=== PATIENT | female | born 2000 | race Caucasian/White ===

== ENCOUNTER 2022-02-02 14:49 | Outpatient (CLI) | payer BC, OTHER, SELFPAY ==
[2022-02-02 17:00] LABS: HIV 1/2/P24 Combo Screen* Negative (Negative)
[2022-02-02 20:51] LABS: Hepatitis B Surface Antigen* Negative (Negative)
[2022-02-02 21:09] LABS: Hepatitis C Virus Antibody* Negative (Negative)
[2022-02-03 02:08] LABS: Chlamydia DNA Amplified* NOT DETECTED (No Detected); GC DNA Amplified* NOT DETECTED (No Detected)
[2022-02-04 12:29] LABS: Varicella-Zoster Virus Ab, IgG 663.8 IV
[2022-02-04 12:37] LABS: Rubella Antibody IgG 23.6 IU/mL
[2022-02-04 17:49] LABS: Rapid Plasma Reagin (RPR) Non Reactive (Non Reactive)
== END 2022-02-02 14:50 | disposition home or self-care (01) ==
PROVIDERS: PCP Family Medicine; Visit Provider Advanced Practice Midwife
DX: Z34.91 Encounter for supervision of normal pregnancy, unspecified, first trimester (principal); Z3A.08 8 weeks gestation of pregnancy
CPT/HCPCS: 86592; 86703; 86762; 86787; 86803; 86850; 86900; 86901; 87086; 87340; 87491; 87591

== ENCOUNTER 2022-04-27 13:54 | Outpatient (CLI) | payer OTHER, BC, SELFPAY ==
--- OUTSIDE RECORDS SUMMARY | 2022-04-27 13:57 | XMS_ITS | Encounter Summary ---
:2000 Author Organization [facility] Address [address] [place] [address] Care Team Providers Name Role Phone No Contact, Pcp Primary Care Provider Unavailable Encounter Details Date Type Department Care Team Description 11/05/2020 Orders Only [facility] Sa chauncey Bishop M.D. [address] [place], [place] [phone] (Wo rk) Social History Tobacco Use Types Packs/Day Years Used Date Smoking Tobacco: Never Assessed Sex Assigned at Date Recorded Not on file documented as of this encounter Plan of Treatment Not on filedocumented as of this encounter Visit Diagnoses Not on filedocumented in this encounter Care Teams Insurance Marketing Specialist Relationship Specialty Start Date End Date No Contact, Pcp PCP - General Family Medicine 05/24/20 documented as of this encounter
--- OUTSIDE RECORDS SUMMARY | 2022-04-27 13:57 | XMS_ITS | Clinical Summary ---
:1999 Author Organization [facility] [place] [address] Care Team Providers Name Role Phone Liyah Alvarez MD Primary Care Provider Allergies Active Allergy Reactions Severity Noted Date Comments Penicillins *Unknown 08/14/2015 Family history penicillin allergy Medications Medication Sig Dispensed Refills Start Date End Date Status fluticasone (50 mcg per SHAKE LIQUID AND 48 g 2 Active actuation) nasal USE 2 SPRAYS IN solution EACH NOSTRIL (FLONASE)Indications: EVERY DAY Seasonal allergies, Acute non-recurrent frontal sinusitis polyethylene glycoL Mix 1 scoop (17 595 g 2 09/09/2021 Active (MIRALAX) 17 gram/dose g) in liquid then powderIndications: take by mouth Chronic constipation once daily. 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 Nystagmus, unspecified 02/09/2005 Encounters Date Type Specialty Care Team Description 03/20/2022 Refill Liyah Alvarez MD Refill Request (Teofilo (28)) 02/02/2022 Orders Only Scanner <No scans attac hed> from Last 3 Months Immunizations Name Administration Dates Next Due DTP-HIB 1999 DTaP 03/13/2004, 1999, 1999, 1999 DTaP-HIB (TriHIBIT) 04/26/2000, 1999, 1999 HIB PRP-T (ActHIB,Hiberix) 1999, 1999, 9 Hepatitis A (Peds) 02/21/2015 Hepatitis B (Adult) 04/26/2000, 1999, 1999 Hepatitis B (Peds) 04/26/2000, 1999, 1999 Human Papilloma Virus Vaccine 07/13/2012, 02/29/2012, 2011 Inactivated Polio Vaccine 03/13/2004, 1999, 1999 , 1999 Influenza, IIV3 (Age >=3 years) 05/27/2007 Influenza, IIV4 05/31/2019, 05/28/2017 Influenza, IIV4 (=>6mos) MDV 05/31/2019 MMR 03/13/2004, 04/26/2000 Meningococcal Vaccine (Menactra) 09/03/2010 Meningococcal Vaccine (Menveo) 09/03/2010 Pneumococcal conj 7-Valent (Prevnar 7) 04/26/2000, 0 Tdap 09/03/2010 Tuberculin (PPD) 03/06/2015, 02/21/2015 Varicella Vaccine 09/03/2010, 08/05/2000, 07/01/2000 Family History Medical History Relation Name Comments Alcohol/Drug Mother Lactose intolerance Mother Genetic Other glaucoma-Uncle~l azy eye-cousin Good Health Sister Relation Name Status Comments Mother Alive Other Sister Alive Social History Tobacco Use Types Packs/Day Years Used Date Former Smoker Cigarettes Smokeless Tobacco: Never Used Tobacco Cessation: Counseling Given: Yes Alcohol Use Standard Drinks/Week Comments Yes 0 (1 standard drink = 0.6 oz pure alcoho l) Alcohol Habits Answer Date Recorded How often do you have a drink containing alcohol? Never 03/16/2019 How many drinks containing alcohol do you have on a typical Not asked day when you are drinking? How often do you have six or more drinks on one occasion? Ne phuong 03/16/2019 Comment: Not asked Sex Assigned at Date Recorded Not on file Obstetrics History Para Term AB IAB SAB Ectopic Multiple Living Live Births 0 0 0 0 0 0 0 0 0 0 0 Last Filed Vital Signs Vital Sign Reading Time Taken Comments Blood Pressure 136/86 09/09/2021 2:13 PM PLASTER FOREMAN Pulse 84 09/09/2021 2:13 PM PLASTER FOREMAN Temperature 36.9 ??C (98.4 ??F) 09/09/2021 2:13 PM PLASTER FOREMAN Respiratory Rate 16 03/11/2020 8:16 AM CDT Oxygen Saturation 100% 09/09/2021 2:13 PM PLASTER FOREMAN Inhaled Oxygen Concentration - - Weight 74.8 kg (164 lb 12.8 oz) 09/09/2021 2:13 PM PLASTER FOREMAN Height 161.3 cm (5' 3.5) 11/06/2020 4:15 PM CDT Body Mass Index 28.74 11/06/2020 4:15 PM CDT Plan of Treatment Health Maintenance Due Date Last Done Comments COVID-19 vaccine series (#1) 1999 Hepatitis C screening for age 0701/23/2017 18-79 Tetanus booster 09/03/2020 09/03/2010 BMI (ht and wt on same day) for 11/06/2021 11/06/2020, 02/11, age 18+ 04/21/2019, Additional history exists Chlamydia for age 16-24 11/06/2021 11/06/2020, 03/16/2019, 12/17/2017, Additional history exists Depression screening for age 12+ 11/06/2021 11/06/2020, , 03/16/2019, Additional history exists Influenza for age 9-49 03/12/2022 05/31/2019, 05/31/2019, 05/28/2017, Additional history exists Pap test for age 21-65 11/07/2023 11/06/2020 Tdap Completed 09/03/2010 HPV series for age 9-26 Completed 07/13/2012, 02/29/2012, 10/19/2011 Procedures Procedure Name Priority Date/Time Associated Diagnosis Comme nts SCAN-ULTRASOUND 02/02/2022 12:00 AM Resul ts for this REPORT CDT procedure are i n the results section. from Last 3 Months Results SCAN-ULTRASOUND REPORT (02/02/2022 12:00 AM CDT) Narrative This result has an attachment that is no t available. Scanner OTHER from Last 3 Months Insurance Payer Benefit Plan / Subscriber ID Effective Dates Phone Addre ss Type Group [employer] VE[employer] Effective for [address] [place] [address] MEDICA [place] MEDICA CHOICE [id number] 2013-Presen [address] [address] [place] [address] [facility] [id number] 2021-Presen [address] [address] [place] [address] [employer] [place] [place] BL[place] [employer] [id number] 2020-Presen [address] [address] [place] [address] (Home) [place] [address] [place] Personal/Family Father [phone] [place] [id number] [place] Motor Vehicle Father 11/15/[address] (Home) [place] [id number] Care Teams Underground Mine Machinery Mechanic Relationship Specialty Start Date End Date Liyah Alvarez MD PCP - General 07/11/08
--- OUTSIDE RECORDS SUMMARY | 2022-04-27 13:57 | XMS_ITS | Clinical Summary ---
:1999 Author Organization [facility] Address [address] [place] [address] Care Team Providers Name Role Phone No Contact, Pcp Primary Care Provider Unavailable Source Comments Patient records contain information from all sites at [facility]. For routine questions regarding patient records, call [phone] during business hours, M-F 8:00 AM - 5:00 PM Central Time. Record requests for emergency care only can be directed to [phone] at any time.[facility] Social History Tobacco Use Types Packs/Day Years Used Date Smoking Tobacco: Never Assessed Sex Assigned at Date Recorded Not on file Plan of Treatment Health Maintenance Due Date Last Done Comments Cervical Cancer Screening 1999 Chlamydia and Gonorrhea 1999 Screening HIV Screening 1999 Hepatitis C Screening 1999 COVID-19 Vaccine (#1) 1999 DTaP,Tdap,and Td Vaccines 09/03/2020 09/03/2010, 03/13/2004 , (7 - Td or Tdap) 04/26/2000, Additional history exists Depression Screening 07/12/2021 (Annual PHQ-2) Influenza Vaccine (#1) 2022 05/31/2019, 05/28/2017, 05/27/2007, Additional history exists Hepatitis B Vaccines Completed 04/26/2000, 1999, 1999 Pneumococcal vaccine (0-64 Aged Out 04/26/2000, 0 No longer eligible years) based on patient 's age to complete this topic HPV Vaccines Completed 07/13/2012, 02/29/2012, 10/19/2011 Insurance Payer Benefit Plan Subscriber ID Effective Phone Address Typ e / Group Dates [facility] MEDICAID [id number] 2020-Prese [phone] [place] nt [address] [employer] [address] [address] [place] [address] [place] [address] Care Teams Supervisor Quilting Relationship Specialty Start Date End Date No Contact, Pcp PCP - General Family Medicine 05/24/20
--- OUTSIDE RECORDS SUMMARY | 2022-04-27 13:57 | XMS_ITS | Encounter Summary ---
:2000 Author Organization [facility] Address [address] [place] [address] Care Team Providers Name Role Phone No Contact, Pcp Primary Care Provider Unavailable Reason for Visit Reason Onset Date Comments Outpatient COVID-19 Testing 05/24/2020 Encounter Details Date Type Department Care Team Description 05/24/2020 External Outreach Department of Zaki Magana Infect ion Upper Internal Medicine in [facility] ([place], [place] [address] Dx) [address] [place] [phone] Social History Tobacco Use Types Packs/Day Years Used Date Smoking Tobacco: Never Assessed Sex Assigned at Date Recorded Not on file documented as of this encounter Progress Notes Evelyn Holland RBisi. - 05/24/2020 3:03 PM CST Encounter created for the drive-through COVID-19 testing. [facility] N[facility] C[facility] ICU documented in this encounter Plan of Treatment Not on filedocumented as of this encounter Procedures Procedure Name Priority Date/Time Associated Diagnosis Comme nts SARS CORONAVIRUS-2 Routine 05/24/2020 3:53 PM Infection Upper Results for this RNA, V REGISTERED NURSE CARDIOVASCULAR ICU Respiratory procedure are i n the results section. documented in this encounter Results SARS Coronavirus-2 RNA, V Symptomatic (05/24/2020 3:53 PM REGISTERED NURSE CARDIOVASCULAR ICU) [facility] Method Time Signature SARS-CoV-2 Swab, 05/25/2020 MKTO Specimen Nasopharynx 3:47 AM REGISTERED NURSE CARDIOVASCULAR ICU Source SARS CoV-2 Undetected Undetected 05/25/2020 DELROY RNA, TMA 3:47 AM REGISTERED NURSE CARDIOVASCULAR ICU Comment: SARS-CoV-2 RNA absent. This result does not rule out COVID-19 in the patient, as the sensitivity of the test depends o n the timing of the specimen collection and the quality of the specim en. Result should be correlated with patient's history and clinical presentat ion. ----ADDITIONAL INFORMATION---- This test is performed using the Aptima SARS-CoV-2 assay ([employer] which has received Emergency Use Authori zation (EUA) by the U.S. Food and Drug Administration. Fact sheets for this Emergency Use Autho rization (EUA) assay can be found at the following links: For Healthcare Providers: https://www.UUSEE a.gov/media/624572/download For Patients: https://www.fda.gov/media/ 383797/download Specimen Anatomical Collection Method Collection Time Receive d Time (Source) Location / / Volume Laterality Varies 05/24/2020 3:53 PM 0 9:14 (Nasopharynx) REGISTERED NURSE CARDIOVASCULAR ICU PM REGISTERED NURSE CARDIOVASCULAR ICU Zaki Magana D.O. LAB MICROBIOLOGY - GENERAL O RDERABLES Performing Organization Address City/State/ZIP Code Phon e Number [facility]- [address] [place] [address] [place] [address] [address] documented in this encounter Visit Diagnoses Diagnosis Infection Upper Respiratory - Primary documented in this encounter Additional Health Concerns Infection Onset Date Last Indicated Resolved Time COVID19 Pending 05/24/2020 05/24/2020 05/25/2020 3:48 AM REGISTERED NURSE CARDIOVASCULAR ICU documented as of this encounter Care Teams Italian Lecturer Relationship Specialty Start Date End Date No Contact, Pcp PCP - General Family Medicine 05/24/20 documented as of this encounter
--- OUTSIDE RECORDS SUMMARY | 2022-04-27 13:57 | XMS_ITS | Encounter Summary ---
:1999 Author Organization [facility] Address [address] [place] [address] Care Team Providers Name Role Phone No Contact, Pcp Primary Care Provider Unavailable Encounter Details Date Type Department Care Team Description 05/24/2020 Admin Visit Department of Family Medicine, [address] [phone] 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
--- NOTE | 2022-04-27 14:00 | CRLHL7_ITS ---
For Patients: As a result of the Century Cures Act, medical imaging exams and procedure reports are released immediately into your electronic medical record. You may view this report before your referring provider. If you have questions, please contact your health care provider. INDICATION: Evaluate anatomy. COMPARISON: 02/02/2022 TECHNIQUE: Real time lyman scale imaging of the fetus was performed as well as color Doppler analysis of the umbilical vessels. FINDINGS: Sonographic imaging demonstrates a single living intrauterine gestation. Fetus demonstrates a regular cardiac rate of 143 beats per minute. Fetus has a breech position. The placenta lies posteriorly without evidence of placenta previa. The edge of the placenta is located 6.6 cm from the internal cervical os. Amniotic fluid volume appears normal. Single deepest vertical pocket: 4.4 cm. The cervix is closed and measures 3.2 cm in length. The composite ultrasound gestational age is calculated at 20 weeks 6 days with an estimated sonographic due date of 09/08/2022. The estimated weight is 411 grams which lies at the 87th %. The following biometric measurements were obtained: Biparietal diameter: 4.8 cm/20 weeks 3 days 51st% Head circumference: 18.1 cm/20 weeks 4 days 45th% Abdominal circumference: 17.0 cm/22 weeks 0 days 88th% Femur length: 3.4 cm/20 weeks 5 days 50th% The HC/AC ratio measures: 1.06 range (1.06-1.25) On anatomic survey, there is a normal appearance of the cerebral ventricles, cavum septi pellucidi, cisterna magna and cerebellum. The nose, lips, and facial profile appear normal. The cervical, thoracic and lumbar spine are well visualized and appear normal. There is a normal four-chamber heart view and the left and right ventricular outflow tracts appear normal. The diaphragm and stomach appear normal. The kidneys and bladder also appear normal. There is a normal three-vessel cord and cord insertion site. The four extremities appear normal. IMPRESSION: Normal OB ultrasound exam with concordance of clinical and sonographic dating. No intrinsic abnormalities noted on anatomic survey. Dictated by Dimitri Phillips MD @ 04/28/2022 11:35:34 AM (Electronically Signed)
== END 2022-04-27 13:55 | disposition home or self-care (01) ==
LOC: US 13:56
PROVIDERS: PCP Family Medicine; Visit Provider Advanced Practice Midwife
DX: Z34.92 Encounter for supervision of normal pregnancy, unspecified, second trimester (principal); Z3A.20 20 weeks gestation of pregnancy
CPT/HCPCS: 76805

== ENCOUNTER 2022-06-11 15:14 | Outpatient (CLI) | payer OTHER, BC, SELFPAY ==
--- OUTSIDE RECORDS SUMMARY | 2022-06-11 15:16 | XMS_ITS | Clinical Summary ---
:1999 Author Organization [facility] [place] [address] Care Team Providers Name Role Phone Liyah [...] Encounters Date Type Specialty Care Team Description 04/27/2022 Orders Only Scanner <No scans attac hed> 03/20/2022 Refill Liyah Alvarez MD Refill Request (Teofilo (28)) from Last 3 Months Immunizations Name Administration [...] Comments Blood Pressure 136/86 09/09/2021 2:13 PM MULTI DISCIPLINED LANGUAGE ANALYST Pulse 84 09/09/2021 2:13 PM MULTI DISCIPLINED LANGUAGE ANALYST Temperature 36.9 ??C (98.4 ??F) 09/09/2021 2:13 PM MULTI DISCIPLINED LANGUAGE ANALYST Respiratory Rate 16 03/11/2020 8:16 AM CDT Oxygen Saturation 100% 09/09/2021 2:13 PM MULTI DISCIPLINED LANGUAGE ANALYST Inhaled Oxygen Concentration - - Weight 74.8 kg (164 lb 12.8 oz) 09/09/2021 2:13 PM MULTI DISCIPLINED LANGUAGE ANALYST Height 161.3 cm (5' 3.5) 11/06/2020 4:15 PM CDT Body Mass Index 28.74 11/06/2020 4:15 PM CDT Plan of Treatment Health Maintenance Due Date Last Done Comments COVID-19 vaccine series (#1) 1999 HIV for age 15-65 2014 Hepatitis C screening for age 0701/23/2017 18-79 [...] Priority Date/Time Associated Diagnosis Comme nts SCAN-ULTRASOUND 04/27/2022 12:00 AM Resul ts for this REPORT CDT procedure are i n the results section. from Last 3 Months Results SCAN-ULTRASOUND REPORT (04/27/2022 12:00 AM CDT) Narrative This result has an attachment that is no t available. Scanner OTHER from Last 3 Months Insurance Payer Benefit Plan / Subscriber ID Effective Dates Phone Addre ss Type Group MOTOR VEHICLE INS [employer] Effective [place] [address] [place] [address] MEDICA [place] MEDICA CHOICE [id number] 2013-Presen [address] [address] [place] [address] [facility] [id number] 2021-Presen [address] [address] [place] [address] [employer] [place] [employer] [id number] 2020-Presen [address] [address] [place] [address] (Home) [place] [address] [place] Personal/Family Father [phone] [place] [address] [place] Motor Vehicle Father 11/15/[address] (Home) [place] [address] Care Teams Technology Methodology Consultant Relationship Specialty Start Date End Date Liyah Alvarez MD PCP - General 07/11/08
[2022-06-14 12:44] LABS: Rapid Plasma Reagin (RPR) Non Reactive (Non Reactive)
== END 2022-06-11 15:15 | disposition home or self-care (01) ==
LOC: NFLDREF 15:15
PROVIDERS: PCP Family Medicine; Visit Provider Obstetrics & Gynecology
DX: Z34.92 Encounter for supervision of normal pregnancy, unspecified, second trimester (principal); Z3A.26 26 weeks gestation of pregnancy
CPT/HCPCS: 86592

== ENCOUNTER 2022-08-14 15:05 | Outpatient (CLI) | payer OTHER, BC, SELFPAY ==
[2022-08-15 20:31] LABS: Strep B DNA Probe Negative (Negative); Strep B Pen/Amox Allergy No
== END 2022-08-14 15:06 | disposition home or self-care (01) ==
LOC: NFLDREF 15:06
PROVIDERS: PCP Family Medicine; Visit Provider Advanced Practice Midwife
DX: Z34.93 Encounter for supervision of normal pregnancy, unspecified, third trimester (principal)
CPT/HCPCS: 87081; 87653

== ENCOUNTER 2022-08-31 12:39 | Outpatient (CLI) | payer OTHER, BC, SELFPAY | END 2022-08-31 12:40 | disposition home or self-care (01) | LOC: NFLDREF 12:40 | PROVIDERS: PCP Family Medicine; Visit Provider Advanced Practice Midwife | DX: R30.9 Painful micturition, unspecified (principal) | CPT/HCPCS: 87086 ==

== ENCOUNTER 2022-09-02 07:11 | Inpatient (IN) | payer OTHER, BC, SELFPAY ==
[2022-09-02] VITALS (66 sets, daily range): BP systolic 88–166; BP diastolic 50–86; PULSE 67–118; RESP 16–18; TEMP 36.3–36.9; O2SAT 100; BMI 37.3
[2022-09-02 07:59] LABS: SARS PCR* Negative SARS-CoV-2 (Negative)
--- NOTE | 2022-09-02 09:05 | W.PM.LDBA ---
Subjective History of Present Illness Date Seen: 09/02/22 Narrative: Brisa is being admitted to Labor and Delivery for labor. She is a 22 year old at 38.6 weeks gestation. Brisa is coping well with labor pain/contractions. She is currently being supported by Anrdés. Understands the current plan of care. Questions answered to her satisfaction. She would like to continue with movement and repositioning for comfort and pain management.??She is planning a waterbirth. H&P done 08/21/22 by Bruce Lara CNM 1. Hx anxiety and depression. Denies concerns at NOB 2. Latex allergy 3. 52lb weight gain at 34.5 weeks OB - Problem Based A/P Additional Plan (1) Pain during labor: Status: Acute Plan ASSESSMENT:? 22 at 38.6 weeks gestation? complicated by:?history of anxiety and depression, not on medication Labor type: Spontaneous, Early labor? Category 1 FHR pattern.?? Labor complicated by: none? GBS negative? ? PLAN:? 1. Routine intrapartum cares as ordered. Continue with expectant management? 2. Monitoring per policy, intermittent? 3. Planning unmedicated . Desires water . Consent signed. Hep C negative. Candidate for analgesia of choice.?? 4. Patient encouraged to reposition and ambulate to promote physiologic labor and .? 5. Anticipate ? Delivery/Labor/Induction Plan Plan: expectant management OB Exam Physical Exam Vital signs: Temp Pulse Resp BP 98.3 F 94 16 132/85 09/02/22 07:21 09/02/22 07:21 09/02/22 07:21 09/02/22 07:21 Detailed Labor and Delivery Exam Patient Gravid: Yes Dilation (cm): 5 Effacement (%): 80 Consistency: soft Contraction Frequency: 3-4 Contraction duration (sec): 60 Tachysystole: No Contraction intensity: Moderate Comments: Exam by RN Fetus (Single) Amniotic Membrane Status: intact Heart Rate Baseline: 135 Monitor Accelerations: Present Monitor Decelerations: None Newspaper Photo Editor Variability: Moderate (6-25)
[2022-09-02] MEDS: LACTATED RINGERS 1000 ML 1,000 ML 125 ML IV ×2 (14:23→16:57)
[2022-09-02] MEDS: LIDOCAINE 2% (PF) 5 ML VIAL EPIDURAL (15:12)
[2022-09-02] MEDS: ROPIVACAINE 0.2% 100 ml 100 ML 12 MG EPIDURAL (15:22)
--- NOTE | 2022-09-02 15:36 | PM.ANBPRC ---
[facility] Medical History Anxiety Depression Surgical History [place] teeth extracted Family History Maternal Grandmother Multiple sclerosis Paternal Grandmother High blood pressure Father High blood pressure Mother Healthy adult Sister Healthy adult Social History (Updated 02/02/22 @ 16:29 by Mercedez Bowie CNM) Are you following a diet prescribed by a doctor: No Are you following a special diet: No Do you want help finding or keeping work or a job: I do not need or want help Highest level of school completed/degree received: high school graduate Physical activity type: walking How many days of moderate to strenuous exercise, like a brisk walk, did you do in the last 7 days: 2 Smoking Status: Never smoker Non-prescribed substance use: denies use Little interest or pleasure in doing things: not at all Feeling down, depressed, or hopeless: not at all Meds Home Medications and Allergies Home Medications Medication Instructions Recorded Confirmed Type [id number] 400 mcg-om3 35 mg-dha 25 1 tab PO DAILY 02/02/22 09/02/22 History mg-epa 5 mg-fish oil chewable tablet Allergies Allergy/AdvReac Type Severity Reaction Status Date / Time Penicillins Allergy Mild Hives Verified 09/02/22 09:26 latex Allergy Unknown Verified 09/02/22 09:26 Results Labs Labs: Laboratory Results - last 24 hr 09/02/22 07:08 SARS-CoV-2 (PCR) Negative SARS-CoV-2 Vital Signs Vital Signs: Last Vital Signs Temp 98.1 F 09/02/22 14:13 Pulse 77 09/02/22 15:35 Resp 18 09/02/22 14:13 BP 104/50 L 09/02/22 15:35 Pulse Ox 100 09/02/22 15:23 Weight: 98.747 kg Height: 162.56 cm Anesthesia Procedures Epidural Insertion Patient Location: OB Start Time: 14:40 Stop Time: 15:40 Start Date: 09/02/22 Stop Date: 09/02/22 Reason for Block: procedure for pain Patient Position: sitting Performed By: Humaira Marsh Preanesthetic Checklist: IV checked, risks and benefits discussed, monitors and equipment checked, pre-op evaluation, timeout performed and anesthesia consent Prep: chlorhexidine gluconate Monitoring: blood pressure monitoring, continuous pulse oximetry and heart rate Approach: midline Vertebral Space: lumbar (1-5) Epidural Technique: GRIFFIN saline Needle Type: Tuohy needle Injection Technique: continuous catheter (continuous catheter) Needle gauge: 17 Needle Length (cm): 10 cm Needle Insertion Depth (cm): 7 Catheter Gauge: 19 Catheter Type: multi-orifice Catheter at skin depth (cm): 15 Test Dose Result: negative and lidocaine 1.5% with epinephrine 1 to 200,000
[2022-09-02] MEDS: PHENYLEPHRINE 100 MCG/ML SYRINGE IVP (15:52)
--- NOTE | 2022-09-02 16:52 | P.OBPN_ITS ---
Subjective Date Seen: 09/02/22 Narrative: Brisa labored in the tub then felt contractions had slowed down so got out to continue with walking and positioning. Decided to get epidural for pain management and is now coping well with labor pain/contractions. She is currently being supported by Andrés. Understands the current plan of care. She would like to rest for approximately 30 minutes and then plan to reevaluate cervix and possibly AROM. Questions answered to her satisfaction. ?? Objective Exam: Objective:?? Constitutional: Alert and oriented x3, no distress, coping well, denies pain or pressure with contractions? Vital signs stable, see nurse documentation?? Abdomen: gravid, contractions palpate moderate with contractions and soft between? Vital Signs: Last Vital Signs Temp 97.3 F L 09/02/22 16:36 Pulse 76 09/02/22 16:48 Resp 18 09/02/22 14:13 BP 106/56 L 09/02/22 16:48 Pulse Ox 100 09/02/22 15:23 Contractions Monitor mode: External Contraction Frequency: 3-4 Contraction pattern: Regular Contraction intensity: Moderate Assessment Assessment: active labor Status: Category l Heart Rate Baseline: 120 [facility] Variability: Moderate (6-25) Monitor Accelerations: Present Monitor Decelerations: Variable Maternal Status: Resting with Epidural Plan Plan: ASSESSMENT:? 22 at 38.6 weeks gestation? complicated by:?history of anxiety and depression, not on medication Labor type: Spontaneous, active labor? Category 2 FHR pattern, reassuring. Labor complicated by: none? GBS negative? ? PLAN:? 1. Routine intrapartum cares as ordered. Continue with expectant management? 2. Monitoring per policy,? continuous with epidural 3. Epidural for pain management. ? 4. Patient encouraged to reposition to promote physiologic labor and .? 5. Anticipate ?
[2022-09-02] MEDS: OXYTOCIN 30 unit/500 ML in NS 30 UNIT/500 ML BAG IVPB (21:18)
--- NOTE | 2022-09-02 22:45 | PM.OBPRCVD ---
Procedure Delivery date: 09/02/22 Procedure Done: [employer]
--- NOTE | 2022-09-02 23:07 | W.PM.VAGDELN ---
OB Procedure Vag Delivery Mother Details Mother Details: The patient is a 22 year-old, 1, Para 0, admitted on 09/02/22 at 38.6 days gestation for spontaneous labor. Additional Details Amniotic Membrane Status: AROM Amniotic Membrane Rupture Date: 09/02/22 Amniotic Membrane Rupture Time: 17:42 Amniotic Membrane Fluid Description: Clear Analgesia/Anesthesia Type: Epidural Waterbirth: No Pitcoin: Yes (for second stage augmentation, AMTSL) Intrapartal Events: Labor Augmentation Labor Onset: 0701 Complete: 19:14 Pushin:20 Heart: heart tones during second stage were category 2, noted variables and early decelerations during contractions but reassuring with moderate variability and accelerations between. Delivery Details Delivery Date: 09/02/22 Delivery Time: 22:06 Route of delivery: Infant Gender: Male Viability: Alive; Heart Rate Present Position at Delivery: OA Delivery Details: Patient was admitted for labor and progressed normally. AROM noted at 1742 with clear fluid. Patient was complete at 1914 and pushing at 1920. of a viable male at 2206 in left tilt position. Vertex delivered OA. No nuchal cord or shoulder. Body delivered easily and without incident. passed to mothers abdomen with a vigorous cry. Cord was clamped and cut at > 5 minutes. APGARS were 8 at one minute and 9 at five minutes respectively. Mouth was bulb suctioned. Intact placenta with a 3 vessel cord delivered spontaneously at 2214. Fundus firm. Shallow 1st degree identified and not repaired. QBL 50 cc. Mother and baby stable; mother plans to breastfeed. Infant weight pending. 1 Minute Interval Total Score: 8 5 Minute Interval Total Score: 9 Additional Details Shoulder Dystocia: No Placenta Delivery Time: 22:14 Placental Delivery Description: Spontaneous Procedure Done: Global Estimated Blood Loss: 50 Laceration: Perineal - 1st Degree (no repair) Blood Loss Measurement Type: QBL Bakri Used: No Sponge/Need Count Correct: Yes Cord Vessel Description: 3 Vessels Event Summary Status: Mother and were stable after delivery. Routine cares.
[2022-09-03] VITALS (7 sets, daily range): BP systolic 107–116; BP diastolic 55–78; PULSE 65–91; RESP 16; TEMP 36.5–37.2; O2SAT 97–99
[2022-09-03] MEDS: ACETAMINOPHEN 500 MG TABLET 1000 MG PO ×3 (00:52→21:50)
[2022-09-03] MEDS: LANOLIN CREAM 1 APPLIC TOPICAL (05:17)
[2022-09-03] MEDS: IBUPROFEN 600 MG TABLET PO (08:57)
[2022-09-03] MEDS: DOCUSATE SODIUM 100 MG CAPSULE PO (08:57)
--- NOTE | 2022-09-03 10:46 | PM.OBPNVD1 ---
OB - PN:Subj Subjective Date Seen: 09/03/22 Patient comments OB post-: no complaints, pain well controlled, tolerating diet and flatus present [place] status: and doing well [place] feeding status: exclusively Narrative: Day 1:? Vaginal Delivery at 38 and 6/7 weeks.? ?? Complications:? none? The patient feels well.? The pain is well controlled with current medications.? She has no new complaints.? Urinary output is adequate and she is voiding without difficulty.? Has a good appetite, is tolerating a general diet, is passing flatus, and has not had a bowel movement.? Has?small amount of rubra lochia.? She is ambulating well.? OB - PN: Obj Exam Physical Exam: Vital signs: Temp Pulse Resp BP Pulse Ox O2 Del Method 99 F 83 16 114/78 97 09/03/22 08:50 09/03/22 08:50 09/03/22 08:50 09/03/22 08:50 09/03/22 08:50 09/03/22 08:50 Narrative: GENERAL APPEARANCE:? normal affect, alert, no distress? MOOD:? appropriate? CHEST:? clear to auscultation and percussion? HEART:? regular rate and rhythm? ABDOMEN:? soft, non-tender the uterine fundus is?U/2 and is appropriate for the stage of recovery.? PERINEUM:? mild edema of the perineum, there is a?1st degree that is healing well.? EXTREMITIES:? normal and no edema? OB - PN: A/P Vaginal Delivery Assessment and Plan (1) Pain during labor: Status: Inactive (2) Lactating mother: Status: Acute (3) care following vaginal delivery: Status: Acute Plan 32 year old on day 1.? 1. cares.? 2. Anticipate discharge tomorrow. Plan day: 1 Plan: routine care
[2022-09-04 00:12] VITALS: BP 113/74; PULSE 68; RESP 16; TEMP 36.6; O2SAT 97
[2022-09-04] MEDS: LANOLIN CREAM 1 APPLIC TOPICAL (07:12)
[2022-09-04] MEDS: IBUPROFEN 600 MG TABLET PO (08:53)
[2022-09-04] MEDS: DOCUSATE SODIUM 100 MG CAPSULE PO (08:54)
--- NOTE | 2022-09-04 09:05 | PM.OBDSVD1 ---
DS: Providers Provider Date Seen: 09/04/22 Date of admission: 09/02/22 07:11 Primary care physician: Liyah Alvarez MD Admitting Clinician: Sandra Castillo CNM Attending Physician on discharge: Gabriela Arias CNM w/ [facility] Irwin DS: Diagnosis Discharge Diagnosis (1) care following vaginal delivery: Status: Acute (2) Lactating mother: Status: Acute (3) Anxiety: Status: Acute (4) Depression: Status: Acute Exam Narrative: Exam Narrative: GENERAL APPEARANCE:? normal affect, alert, no distress? MOOD:? appropriate? CHEST:? clear to auscultation? HEART:? regular rate and rhythm? ABDOMEN:? soft, non-tender the uterine fundus is At Umbilicus, Midline and is appropriate for the stage of recovery.? PERINEUM:? mild edema of the perineum, there is a Perineal Laceration, mild abrasion/1st degree, that is healing well.? EXTREMITIES:? normal and +1 edema? Const: Vital Signs, click to edit/add: Vital Signs - 24 hr 09/03/22 13:26 09/03/22 17:32 09/03/22 21:45 Temperature 98.1 F 99 F 97.7 F Pulse Rate [Pulse Oximeter] 83 71 65 Respiratory Rate 16 16 16 Blood Pressure [Le ft Arm] 113/76 111/73 107/71 Pulse Oximetry 97 98 98 Oxygen Delivery Me thod Room Air Room Air Room Air 09/04/22 00:12 Temperature 98 F Pulse Rate [Pulse Oximeter] 68 Respiratory Rate 16 Blood Pressure [Le ft Arm] 113/74 Pulse Oximetry 97 Oxygen Delivery Me thod Room Air Documenting provider has reviewed patient's vital signs: yes OB - DS: Summary Hospital Course Hospital Course: The patient is a 22 year old G 1 P 1 at 39 1/7 weeks gestation that was admitted to the Center on 09/02/22 for spontaneous onset of labor. She had an uncomplicated vaginal delivery. She delivered a viable male . the patient has done well. The pain is well controlled with current medications.? She has no new complaints.? Urinary output is adequate and she is voiding without difficulty.? Has a good appetite, is tolerating a general diet, is passing flatus, and has had a bowel movement.? Has small amount of rubra lochia.? She is ambulating well. She is and reports it is going well. She does desire to see . Peripartum Data delivery method: Vaginal Laceration description: Perineal - 1st Degree (slight, no repair) complications: none [place] Infant Gender: Male Infant Discharge Plan: Home Status at Discharge Functional status at discharge: independent ambulation Overall status at discharge: patient is progressing back to baseline Time Spent with Patient Time attestation: Total time spent providing and/or coordinating discharge services: Discharge Plan Discharge Disposition: Home, Self-Care Date of Admission: 09/02/22 07:11 Primary Care Provider: Liyah Alvarez Condition: Stable Anticipated Discharge Date/Time: 09/04/22 12:00 Discharge Medications: New acetaminophen 500 mg Tablet 1,000 mg PO Q6H PRNQty: 0 0RF docusate sodium 100 mg Capsule 100 mg PO DAILY Qty: 90 0RF ibuprofen 600 mg Tablet 600 mg PO Q6H PRNQty: 60 0RF Continued [id number] oil 400 mcg-35 mg -25 mg-5 mg tablet,chewable 1 tab PO DAILY Discharge Orders: Discharge Order (Routine); Ordered 09/04/22 Ordered By: Gabriela Arias Patient Education: OB Over the Counter Medication Information, OB Vaginal/Breast Feeding Additional Instructions: Discharge instructions were reviewed with the patient including signs and symptoms of infection and home going medications Nothing vaginally for 6 weeks: no tampons or intercourse Off Work or School for 6 weeks 2-week visit: discuss infant feeding concerns, review control options and screen for anxiety/depression. 6-week visit for an annual exam. consultation services are available to all mothers and babies for the first year after delivery.? To make an appointment, please call [phone]. Activity Level: Activity as Tolerated Discharge Diet: Regular Follow Up Appointments: [facility] [Provider Group] (2 and 6 weeks) Forms: [employer] Info Instructions
[2022-09-04 09:52] VITALS: BP 113/76; PULSE 73; RESP 16; TEMP 36.9; O2SAT 97
== END 2022-09-04 15:30 | disposition home or self-care (01) | DRG 807 ==
LOC: OB OUT 07:15 → OB 07:15
PROVIDERS: Admitting Provider Advanced Practice Midwife; PCP Family Medicine; Visit Provider Advanced Practice Midwife
DX: O70.0 First degree perineal laceration during delivery (principal); Z37.0 Single live birth; F41.9 Anxiety disorder, unspecified; F32.A Depression, unspecified; O99.344 Other mental disorders complicating childbirth; Z3A.38 38 weeks gestation of pregnancy
CPT/HCPCS: 01967; 87635; 99213; A9270; J2370; J2795; J7120

== ENCOUNTER 2022-09-09 13:03 | Outpatient (CLI) | payer OTHER, BC, SELFPAY ==
--- NOTE | 2022-09-09 17:00 | P.LACCB_ITS ---
Consult Note - Mom Date of Visit Date of visit: 09/09/22 provider relations consultant: Alize Egan Visit Code: Visit Patient's Information Phone number: [phone] : 1 Para: 1 Allergies Penicillins Allergy (Mild, Verified 09/18/22 13:32) Hives latex Allergy (Unknown, Verified 09/18/22 13:32) Mother's Medical History: Medical History (Updated 09/05/22 @ 00:01 by ) Anxiety Depression Delivery Information Delivery type: Vaginal Weeks Gestation: 38.6 Gestational Age: AGA Weight: 3.68 kg Discharge Weight: 3.521 kg Baby's Information Baby's Age at Visit: 7 days Baby's Provider or Clinic: Dr. Hogan Jaundice: Yes (to umbilicus) Reason for Consult Reason for Consult: difficulty latching Past Experience Past Experience: No Current Frequency of Day Feedings: POC are waking baby every 2 hours around the clock Both Breasts: Yes Suck: strong Latch: fairly wide Length of Time: about 15 minutes Pumping Pumping: Yes (pumps about twice/day) Quantity Pumped: about 2 oz total each time Supplementing EMB Supplement: Yes (did supplement for about 24 hours but that was a few days ago) Formula Supplement: No Baby Elimination Number of Wet Diapers a Day: 7 - 8 Number of BM a Day: 7 - 8; yellow and seedy Breast/Nipple Condition Engorgement: No Maternal Nipple Condition - Left: Short Maternal Nipple Condition - Right: Short Sore Nipples: Yes Onsite Pre-Feed weight: 3.504 kg Post-Feed weight: 3.574 kg Milk Transferred (mL): 70 Pre-Nursing Left Nipple: Within Normal Limits Pre-Nursing Right Nipple: Within Normal Limits Post-Nursing Left Nipple: Within Normal Limits Post-Nursing Right Nipple: Within Normal Limits Assessments/Interventions Assessments/Interventions: Met with mom and this now 7 day old ex- term AGA baby for consult.? Mom reports nursing had been going fairly well but when her milk came in over the weekend she became very engorged and baby stopped latching.? Despite her attempts at pumping, her breasts really didn't soften enough for him to successfully nurse so she pumped and gave 2 oz EBM about every 2 hours for a day.? For the past few days she's been able to latch baby on the breast, sometimes needing a nipple shield, and states he'll nurse on one side for about 15 minutes.? She's continued to pump (with a Spectra) 2 - 3 times/day and gets 2 oz total each time which she's now just storing.? She has questions re: baby's weight, using the nipple shield, and pumping. Breasts WNL- symmetrical with rounded lower quadrants, intramammary distance is < 1.5 inches.? Nipples are short but everted and don't flatten or retract on compression; no damage noted.? Per mom they were quite damaged last week but have healed nicely. Baby has lost 11 grams since his last visit on 09/07 and is now 5% below BW (was 4% below on 09/07).? POC report he seems to favor turning his head to the right, but has equal ROM when moving his extremities.? They deny a caput or cephalohematoma.? Baby's palate is WNL.? His upper lip is a little difficult to flange but the frenulum isn't thick and there's no blanching of the gums.? He has a strong suck on a finger; the tongue cups around the finger and extends past the gum line; also has good lateral movement.? His lower frenulum is easy to visualize and appears to be WNL.? He's jaundiced to his abdomen, but the TSB = 15.1 on 09/06 and per [employer] did not require any intervention. Mom latched baby in the football hold on the left without the shield and reported the latch was comfortable.? He initially suckled vigorously but became sleepy after about 5 minutes so she was encouraged to wake him up and put him back on the same side. She did this three times total and in about a 20 minute session he transferred 44 ml.? She switched him to the right side and he nursed for about 15 minutes needing a little less stimulation and transferred 26 ml for a total of 70 ml. Plan: 1. Breastfeed baby every 2 - 3 hours (ok to watch for his feeding cues but don't go past three hours for now).? OK to use the nipple shield if needed, important to keep him awake and active at the breast and offer both sides. (suspect the reason for the weight loss is b/c she wasn't keeping him awake and actively nursing).? Reviewed if she does use the shield it's important she sees milk in it when he's done. 2. No need to supplement unless he has a poor feeding at the breast. 3. No medical need to pump but ok if she wants to continue pumping 1 - 2 times/day.? Nipples were measured and a smaller flange size was suggested; also gave a Flange Fits Guide. 4. Will f/u on 09/11 for a pre and post weight check. Meds Home Medications and Allergies Home Medications Medication Instructions Recorded Confirmed Type [id number] 400 mcg-om3 35 mg-dha 25 1 tab PO DAILY 02/02/22 09/18/22 History mg-epa 5 mg-fish oil chewable tablet Allergies Allergy/AdvReac Type Severity Reaction Status Date / Time Penicillins Allergy Mild Hives Verified 09/18/22 13:32 latex Allergy Unknown Verified 09/18/22 13:32
== END 2022-09-09 13:04 | disposition home or self-care (01) ==
LOC: OB LAC 13:03
PROVIDERS: Visit Provider Obstetrics & Gynecology
DX: Z39.1 Encounter for care and examination of lactating mother (principal)
CPT/HCPCS: 99211

== ENCOUNTER 2024-08-01 15:57 | Outpatient (CLI) | payer BC, SELFPAY ==
--- NOTE | 2024-08-01 16:00 | CRLHL7_ITS ---
For Patients: As a result of the Century Cures Act, medical imaging exams and procedure reports are released immediately into your electronic medical record. You may view this report before your referring provider. If you have questions, please contact your health care provider. INDICATION: Check viability and dates TECHNIQUE: Transvaginal scanning was performed to optimally evaluate the IUP and adnexa. Ovarian blood flow was evaluated with color-flow doppler. COMPARISON: None FINDINGS: There is a living IUP with gestational age of 9 weeks 3 days by LMP and today`s crown-rump length EDC is 03/03/2025. The embryonic heart rate is measured at 173 beats per minute. The placenta is not yet formed. 1.8 x 1.2 x 0.4 cm hemorrhage is noted. The right ovary is not visualized. The left ovary is normal, measuring 2.6 x 2.1 x 1.4 cm. Ovarian blood flow is demonstrated with color-flow doppler. No adnexal mass or free fluid is apparent. IMPRESSION: 1. Living IUP with gestational age of 9 weeks 3 days by LMP and today`s crown-rump length. EDC is 03/03/2025. 2. 1.8 x 1.4 x 0.4 cm subchorionic hemorrhage. Dictated by Basilio Gutierrez MD @ 08/02/2024 5:53:58 AM (Electronically Signed)
== END 2024-08-01 15:58 | disposition home or self-care (01) ==
LOC: US 16:00
PROVIDERS: Visit Provider Advanced Practice Midwife
DX: Z34.91 Encounter for supervision of normal pregnancy, unspecified, first trimester (principal); O20.9 Hemorrhage in early pregnancy, unspecified; Z3A.09 9 weeks gestation of pregnancy
CPT/HCPCS: 76817; 83021; 86592; 86703; 86704; 86706; 86762; 86787; 86803; 86850; 87086; 87340; 87491; 87591; 87624; 88142

== ENCOUNTER 2024-10-24 14:51 | Outpatient (CLI) | payer BC, SELFPAY ==
--- NOTE | 2024-10-24 15:00 | CRLHL7_ITS ---
For Patients: As a result of the Century Cures Act, medical imaging exams and procedure reports are released immediately into your electronic medical record. You may view this report before your referring provider. If you have questions, please contact your health care provider. LMP: 05/27/2024. NIGEL by LMP: 03/03/2025. GA: 21w, 3d. Single. INDICATION: anatomy. TECHNIQUE: Transabdominal obstetric imaging was performed. CERVIX: Visualized. Measurement: 3.2. POSITIONING: Anterior. AMNIOTIC FLUID: 4.2 cm. UMBILICAL CORD: 3-vessel cord. PLACENTA INSERTION: Central. PLACENTA TIP TO INTERNAL OS: 9.3 cm. SURVEY: Observed Structures Cerebellum: Yes. 2.3 cm; 22w 6d. Cisterna Magna: Yes. 6.0 mm. Nuchal Fold: Yes. 4.8 mm. Lateral Ventricle: Yes. 5.3 mm. CSP: Yes. Midline Falx: Yes. Choroid Plexus: Yes. Spine: Yes. Stomach: Yes. Abd Cord Insertion: Yes. Urinary Bladder: Yes. Kidneys: Yes. Diaphragm: Yes. Nose/lips: Yes. Orbital view: Yes. Profile: Yes. Upper Extremities: Yes. Lower Extremities: Yes. Hands: Yes. Feet: Yes. Four-Chamber Heart: Yes. LVOT: Yes. RVOT: Yes. 3VV: Yes. 3VTV: Yes. BIOMETRY: BPD: 5.1 cm. 21w 4d, 51.9 percent. HC: 19.1 cm. 21w 3d, 36.6 percent. AC: 19.0 cm. 23w 5d, 96.3 percent. FL: 3.8 cm. 22w 1d, 66.9 percent. FL/AC: 20.04 percent. HC/AC Ratio: 1.00. Heart rate: 137 beats per minute. age by this US: 22w 2d. NIGEL by this US: 02/25/2025. EFW: 537.78 g. Weight: 1 lbs, 3 oz. Percentile by NIGEL: Greater than 97 percent. IMPRESSION: 1. Sonographic gestational age 22 weeks 2 days and sonographic due date 02/25/2025. Sonographic age is 6 days ahead of the clinical age. 2. Estimated weight greater than 97th percentile. Abdominal circumference 96th percentile. 3. Normal anatomic survey. Dimitri Phillips M.D. Diagnostic Radiologist [email or web address] LILIBETH/ramya / bM/Dictated by: Dimitri Phillips MD @ 10/24/2024 6:57:00 PM (Electronically Signed)
== END 2024-10-24 14:52 | disposition home or self-care (01) ==
LOC: US 14:53
PROVIDERS: Visit Provider Advanced Practice Midwife
DX: Z34.92 Encounter for supervision of normal pregnancy, unspecified, second trimester (principal); O36.62X0 Maternal care for excessive fetal growth, second trimester, not applicable or unspecified; Z3A.21 21 weeks gestation of pregnancy
CPT/HCPCS: 76805

== ENCOUNTER 2024-12-12 14:00 | Outpatient (CLI) | payer BC, SELFPAY | END 2024-12-12 14:01 | disposition home or self-care (01) | LOC: NFLDREF 12-15 04:25 | PROVIDERS: Visit Provider Advanced Practice Midwife | DX: Z34.93 Encounter for supervision of normal pregnancy, unspecified, third trimester (principal); Z3A.28 28 weeks gestation of pregnancy | CPT/HCPCS: 86592 ==

== ENCOUNTER 2025-01-23 09:16 | Outpatient (CLI) | payer BC, SELFPAY ==
[2025-01-23 09:33] VITALS: PULSE 94; O2SAT 98
[2025-01-23 09:34] VITALS: BP 126/74; PULSE 84
[2025-01-23 10:03] LABS: Appearance Urine Clear (Clear)
[2025-01-23 10:31] LABS: Trichomonas No Trichomonas Seen (None Seen)
--- NOTE | 2025-01-23 10:50 | P.OBLDTN_ITS ---
OB - Triage/Final Diagnosis Visit Information Narrative: Brisa is a 25 year old 2 para 1 at 34.3 weeks gestation by LMP, who presents with spotting in . She reports that she had some brownish bloody discharge when she went to the bathroom this morning. She denies any leaking of fluid, itching, or burning. She had intercourse about 48 hours ago and was very active yesterday. She denies any abdominal pain. She has not had bleeding before. She isn't sure if she was constipated but has had 3 stools since early this morning. She has not had any bleeding since arrival. She denies any regular contractions or abdominal pain. She has had some contractions or irregular contractions but feels they are not painful. She endorses active movement. RN collected wet prep and urinalysis. Negative. General Appearance: Alert, cooperative female in no acute distress.??? Psychiatric: alert and oriented x3. Appropriate mood and affect.??? Abdomen:? Soft, nontender, and gravid. Vertex by Jose's. : Normal external female anatomy.? On speculum exam, the vaginal mucosa and cervix are normal in appearance without visible lesions. Scant brownish discharge present at os, no blood coming from the cervix. Mucous present at os, appears fingertip dilated. Assessment: at 34.3 weeks Spotting in Plan: Reviewed possible causes of spotting in . Can exclude infection and labor as unlikely causes with exam and wet prep. Reviewed other possible causes of spotting including constipation, increased ativity, or intercourse. Encouraged rest and light duty. Reviewed warning s/sx of labor, abruption, infection, or when to be concerned with bleeding in . RTC as scheduled. Evaluation Laboratory results: Laboratory Tests 01/23/25 Range/Units 09:40 Urine Color Light yellow (Yellow) Urine Appearance Clear (Clear) Urine pH 7.0 (5.0-8.5) Ur Specific [place] 1.015 (1.000-1.030) Urine Protein Negative (Negative) Urine Glucose (UA) Negative (Negative) Urine Ketones Negative (Negative) Urine Blood 3+ A (Negative) Urine Nitrite Negative (Negative) Urine Bilirubin Negative (Negative) Urine Urobilinogen 0.2 (0.2-1.0) Ur Leukocyte Esterase Negative (Negative) Urine RBC 0-2 (0-2) Urine WBC 0-2 (0-5) Ur Squamous Epith Cells Few (None-Few) Urine Bacteria Few A (None) Vaginal Trichomonas No Trichomonas Seen (None Seen) Vaginal Yeast No Yeast Seen (None Seen) Vaginal Clue Cells No Clue Cells Seen (None Seen) Vital signs: Vital Signs - 24 hr 01/23/25 09:33 01/23/25 09:34 Pulse Rate 84 Blood Pressure 126/74 Pulse Oximetry 98 Fetus (Single) Heart Rate Baseline: 145 Software Sales Representative Variability: Moderate (6-25) Monitor Accelerations: Present Monitor Decelerations: None Station: 0 Final Diagnosis (1) Spotting affecting in third trimester: Status: Acute (2) 34 weeks gestation of : Status: Acute
--- NOTE | 2025-01-23 12:21 | PC.OBNST ---
NST Note NST Note Start: 01/23/25 09:28 Freq: ONCE Status: Active Protocol: Document 01/23/25 11:00 ABP (Rec: 01/23/25 12:21 ABP [id number]) NST Note 2 Para (# of births) 1 EDC 03/03/25 Gestational Age In 34 Weeks & 3 Days Weeks & Days Patient Presented Vaginal bleeding with Complaint(s) of Reactive Yes Appropriate for Yes Gestational Age QUITA Lamb RN Date 01/23/25 Reactive Yes Appropriate for Yes Gestational Age QUITA Germain RN Date 01/23/25 OB NST charge Yes Complete NST Note Yes via Write Note The provider's electronic signature indicates the NST is reactive/appropriate for gestational age. *Note to provider: If an addendum is required, open the patient's chart and click on the note under the Nurse/Allied Health tab.
== END 2025-01-23 10:55 | disposition home or self-care (01) ==
LOC: OB OUT 09:17 → OB 09:17
PROVIDERS: Visit Provider Advanced Practice Midwife
DX: O26.853 Spotting complicating pregnancy, third trimester (principal); Z3A.34 34 weeks gestation of pregnancy
CPT/HCPCS: 59025; 81001; 87086; 87210; G0463

== ENCOUNTER 2025-02-05 13:58 | Outpatient (CLI) | payer BC, SELFPAY ==
[2025-02-06 20:09] LABS: Strep B DNA Probe Negative (Negative)
[2025-02-06 20:57] LABS: Strep B Susceptibility Needed? No
== END 2025-02-05 13:59 | disposition home or self-care (01) ==
LOC: NFLDREF 13:59
PROVIDERS: Visit Provider Advanced Practice Midwife
DX: Z34.83 Encounter for supervision of other normal pregnancy, third trimester (principal)
CPT/HCPCS: 87081; 87653

== ENCOUNTER 2025-02-24 21:00 | Inpatient (IN) | payer BC, SELFPAY ==
[2025-02-24 20:39] VITALS: BP 130/80; PULSE 76
[2025-02-24 20:41] VITALS: TEMP 37.1
--- NOTE | 2025-02-24 21:44 | W.PM.LDBA ---
Subjective History of Present Illness Narrative: Brisa is a 25 yo at 39 0/7 weeks being admitted to Labor and Delivery for PROM. She is supported in labor by her Fiance, Andrés. She reports she went on a walk today and has felt occasional cramping. This evening after eating dinner she felt a pop and a gush of fluid at 1930. She has since then been leaking clear fluid. Her full history and physical was dictated by RIVER Ribera on 02/12/2025. Please see this for details. Specific Issues/Plans Partner: Andrés? H&P:? 02/12/25 Edith Bowie CNM? # Hx anxiety and depression. No problems in previous # Latex allergy Covid: declined? Flu: declined? Tdap:12/26/24? RSV: []? Hep b non-immune, not high risk work 32 week mental health: []? Last pap: 07/2024 OB - Problem Based A/P Additional Plan (1) PROM (premature rupture of membranes): Status: Acute (2) 39 weeks gestation of : Status: Acute (3) Anxiety: Status: Acute (4) Depression: Status: Acute Plan ASSESSMENT:? 25 yo at 39.0 weeks gestation? complicated by:?hx of anxiety/depression Labor type: Spontaneous, Early labor? Category 1 FHR pattern.?? Labor complicated by: PROM? GBS negative? ? PLAN:? 1. Routine intrapartum cares as ordered. Continue with expectant management at this time. Discussed recommendation of Pitocin within 1-6 hours after ROM per ACOG recommendation vs expectant management with most labors likely to start within 12-24 hours from ROM. Reviewed risks with PROM including infection and how to minimize. All questions answered. She prefers expectant management at this time. 2. Monitoring per policy, intermittent? 3. Planning an epidural. She is a candidate for analgesia of choice when desired. 4. Patient encouraged to reposition and ambulate to promote physiologic labor and .? 5. Anticipate ? Delivery/Labor/Induction Plan Plan: expectant management OB Exam Physical Exam Vital signs: Temp Pulse BP 98.7 F 76 130/80 02/24/25 20:41 02/24/25 20:39 02/24/25 20:39 Narrative: Vitals Reviewed Constitutional:? Alert and oriented x3 HEENT:? Normocephalic, atraumatic Neck:? Supple Lungs:? Clear to auscultation bilaterally Heart:? Regular rate and rhythm, no murmur, rub or gallop Abdomen:? Soft, nontender, and gravid. Vertex by Jose's, confirmed with cervical exam. Extremities:? No edema or erythema Cervix: 3.5 cm/70%/-2 station/vertex NST: 135 bpm/moderate variability/15x15 accelerations/no decelerations/contractions irregular Detailed Labor and Delivery Exam Patient Gravid: yes
[2025-02-24 22:35] VITALS: PULSE 72; RESP 16; TEMP 36.7
[2025-02-24 22:53] VITALS: BMI 37.6
[2025-02-24 22:58] LABS: Hematocrit 33.8 % (33.0-51.0); Hemoglobin* 11.3 gm/dL (12.0-16.0); Immature Granulocytes Abs Auto 0.13 K/uL (0.00-0.30); Immature Granulocytes Pct Auto 1.4 %; Mean Corpuscular HGB Conc 33 gm/dL (32-36); Mean Corpuscular Hemoglobin 29 pg (26-34); Mean Corpuscular Volume 86 fL (80-100); RDW Coefficient of Variation % 13.0 % (11.5-15.5); Red Blood Count 3.95 m/uL (4.00-5.20); White Blood Count* 9.47 K/uL (4.50-11.00)
[2025-02-24 23:06] LABS: Lymphocytes Absolute Auto 1.90 K/uL (0.90-2.90)
[2025-02-24 23:07] LABS: Slide Review Reflex No
[2025-02-24 23:35] VITALS: PULSE 80; RESP 16; TEMP 36.9
[2025-02-25] VITALS (36 sets, daily range): BP systolic 88–131; BP diastolic 49–83; PULSE 59–151; RESP 16; TEMP 36.7–37.1; O2SAT 98–99
[2025-02-25] MEDS: LACTATED RINGERS 1000 ML 1,000 ML IV ×2 (00:36→01:39)
[2025-02-25] MEDS: BUPIVACAINE 0.25% PF 10 ML 10 ML ML EPIDURAL (01:10)
[2025-02-25] MEDS: ROPIVACAINE 0.2% 100 ml 100 ML 12 MG EPIDURAL (01:14)
--- NOTE | 2025-02-25 01:18 | PM.ANBPRC ---
[facility] Medical History (normal spontaneous vaginal delivery) ?O80 - Encounter for full-term uncomplicated delivery (ICD-10) Pain during labor ?O99.892 - Other specified diseases and conditions complicating childbirth (ICD-10) ?R52 - Pain, unspecified (ICD-10) Depression ?F32.A - Depression, unspecified (ICD-10) Anxiety ?F41.9 - Anxiety disorder, unspecified (ICD-10) Surgical History [place] teeth extracted ?K08.409 - Partial loss of teeth, unspecified cause, unspecified class (ICD-10) Family History Maternal Grandmother Multiple sclerosis Paternal Grandmother High blood pressure Father High blood pressure Mother Healthy adult Sister Healthy adult Social History Narrative: SOCIAL? ? Education: some college? ? 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 ? Partner: Andrés? partners-engaged work at [employer] Lives with: Andrés, and son? ? Pets: 2 dogs Abuse: Denies past ? ? ? Special Diet: Denies? ? Ok with a blood transfusion: yes? ? Culture or caodaism beliefs: denies? RISK FACTORS? ? Exercise Times/wk: walking in the summer and walks at stores in the winter? ? Depression/Anxiety: denies? ? Previous Treatments NA ? Therapy NA CHELO: 0 PHQ 9: 0? ? Seat Belt Use: Routinely ? Smoking: Denies past/present? ?Smoked 10 years ago, daily 1-2 cigarettes a day, for 1 year Alcohol/day: Denies while ? ?rare use when not Caffeine: coffee daily one cup? ? Drug Use: Denies past/present? What is your current living situation?: I presently have a place to live Problems where you live: no known problems In the past 12 months, utilities in danger of being shut off: no In past 12 months, lack of transportation kept you from medical appts, meetings, work, or getting things needed for daily living: no In the past 12 mos, have been you worried that your food would run out before you had money to buy more?: never true In the past 12 mos, the food you bought just didn't last and you didn't have money to buy more?: never true Are you following a diet prescribed by a doctor: No Are you following a special diet: No Do you want help finding or keeping work or a job: I do not need or want help Highest level of school completed/degree received: high school graduate Physical activity type: walking How many days of moderate to strenuous exercise, like a brisk walk, did you do in the last 7 days: 2 Smoking Status: Never smoker Non-prescribed substance use: denies use How often does anyone, including family, friends and others, physically hurt you: never How often does anyone, including family, friends and others, insult or talk down to you: never How often does anyone, including family, friends and others, threaten you with harm: never How often does anyone, including family, friends and others, scream or curse at you: never Meds Home Medications and Allergies Home Medications ?Medication ?Instructions ?Recorded ?Confirmed ?Type vits 168-iron 27 mg-folic 1 cap PO DAILY 08/01/24 02/24/25 History acid 800 mcg-omega3 235 mg capsule (One-A-Day -1) docusate sodium 100 mg capsule 100 mg PO QDAY PRN 02/24/25 02/24/25 History Allergies Allergy/AdvReac Type Severity Reaction Status Date / Time Penicillins Allergy Mild Hives Verified 02/24/25 20:25 latex Allergy Unknown Verified 02/24/25 20:25 Results Labs Labs: Laboratory Results - last 24 hr 02/24/25 21:00 WBC 9.47 RBC 3.95 L Hgb 11.3 L Hct 33.8 MCV 86 MCH 29 MCHC 33 RDW Coeff of Andriy 13.0 Plt Count 206 Neut % (Auto) 69.0 Lymph % (Auto) 19.9 L [place] % (Auto) 9.1 Eos % (Auto) 0.4 Baso % (Auto) 0.2 Neut # (Auto) 6.54 Lymph # (Auto) 1.90 [place] # (Auto) 0.90 Eos # (Auto) 0.04 Baso # (Auto) 0.02 Abs Immat Gran (auto) 0.13 Imm/Tot Granulo (auto) 1.4 Vital Signs Vital Signs: Last Vital Signs Temp 98.3 F 02/25/25 00:37 Pulse 65 02/25/25 01:17 Resp 16 02/24/25 23:35 BP 123/72 02/25/25 01:17 Pulse Ox 99 02/25/25 01:15 Weight: 99.473 kg Height: 162.56 cm Anesthesia Procedures Epidural Insertion Patient Location: OB Start Time: 00:45 Stop Time: 01:30 Start Date: 02/25/25 Stop Date: 02/25/25 Reason for Block: procedure for pain Patient Position: sitting Performed By: Mauro Metz Preanesthetic Checklist: IV checked, risks and benefits discussed, surgical consent, monitors and equipment checked, pre-op evaluation, timeout performed and anesthesia consent Prep: chlorhexidine gluconate Monitoring: blood pressure monitoring, continuous pulse oximetry and heart rate Approach: midline Vertebral Space: lumbar (1-5) Epidural Technique: GRIFFIN saline Needle Type: Tuohy needle Injection Technique: continuous catheter Needle gauge: 17 Needle Length (cm): 10 cm Needle Insertion Depth (cm): 6 Catheter Gauge: 19 Catheter Type: multi-orifice Catheter at skin depth (cm): 12 Test Dose Result: negative and lidocaine 1.5% with epinephrine 1 to 200,000
--- NOTE | 2025-02-25 03:52 | W.PM.OBVAGDE ---
OB Procedure Vag Delivery Mother Details Mother Details: The patient is a 25 year-old, 2, now Para 2, admitted on 02/24/25 at 39.1 weeks gestation. : 2 Para: 2 Weeks Gestation: 39.1 Admission Date: 02/24/25 Additional Details Amniotic Membrane Status: SROM Amniotic Membrane Rupture Date: 02/24/25 Amniotic Membrane Rupture Time: 19:30 Amniotic Membrane Fluid Description: Clear Analgesia/Anesthesia Type: Epidural Waterbirth: No Pitcoin: No (Expectant management) Intrapartal Events: Precipitous Labor <3 Hrs Delivery augmentation: rupture of membranes Labor Onset: 00:30 Complete: 03:01 Pushin:04 Heart: heart tones during second stage were category II with decelerations during contraction and slow return to baseline between contractions, moderate variability. Delivery Details Delivery Date: 02/25/25 Delivery Time: 03:21 Route of delivery: Infant Gender: Male Viability: Alive; Heart Rate Present Position at Delivery: OA Delivery Details: Patient was admitted for PROM with onset of labor within 12 hours. She progressed normally. SROM of clear fluid at 1930 prior to onset of labor. She utilized an epidural for pain management. Patient was complete at 0301 and pushing at 0304. of a viable male at 0321 in semi-davis right tilt on the bed. Vertex delivered OA. No nuchal cord or shoulder. Body delivered easily and without incident. Infant passed to mothers abdomen with a vigorous cry. Cord was clamped and cut at > 5 minutes. APGARS were 8 at one minute and 9 at five minutes respectively. Mouth was bulb suctioned. Intact placenta with a 3 vessel cord delivered spontaneously at 0330. Fundus firm. Intact perineum. QBL 50 cc. Mother and baby stable; mother plans to breastfeed. Infant weight pending. 1 Minute Interval Total Score: 8 5 Minute Interval Total Score: 9 Additional Details Shoulder Dystocia: No Placenta Delivery Time: 03:30 Placental Delivery Description: Spontaneous Delivery repair: Vicryl Procedure Done: Global Blood Loss: 50 Laceration: None Blood Loss Measurement Type: QBL Bakri Used: No Cord Vessel Description: 3 Vessels Event Summary Status: Mother and were stable after delivery. Disposition: floor
[2025-02-25] MEDS: IBUPROFEN 600 MG TABLET PO ×2 (08:07→20:51)
[2025-02-25] MEDS: LANOLIN CREAM 1 APPLIC TOPICAL (10:12)
[2025-02-25] MEDS: DOCUSATE SODIUM 100 MG CAPSULE PO (14:51)
--- NOTE | 2025-02-26 07:29 | PM.OBDSVD1 ---
DS: Providers Provider Date Seen: 02/26/25 Date of admission: 02/24/25 21:00 Primary care physician: Not a Local Provider Admitting Clinician: Gabriela Arias CNM Attending Physician on discharge: Leodan Vaughan CNM Date of Discharge: 02/26/25 DS: Diagnosis Discharge Diagnosis (1) care and examination of lactating mother: Status: Acute Exam Narrative: Exam Narrative: VSS, afebrile GENERAL APPEARANCE: ?normal affect, alert, no distress MOOD: ?appropriate HEENT: normocephalic, neck supple, full ROM CHEST: ?Symmetrical chest wall movement. ?Normal respiratory effort. ?Clear to auscultation HEART: ?regular rate and rhythm ABDOMEN: ?soft, non-tender. Uterine fundus is firm, at Umbilicus, Midline and is appropriate for the stage of recovery. ?Bowel sounds present. PERINEUM: ?mild edema of the perineum, intact. EXTREMITIES: ?normal and 1+ edema Const: Vital Signs, click to edit/add: Vital Signs - 24 hr 02/25/25 08:00 02/25/25 12:21 02/25/25 16:58 Temperature 98.7 F Pulse Rate [Blood Pressure Cuff] 69 74 71 Respiratory Rate 16 16 16 Blood Pressure [Le ft Arm] 125/83 123/76 117/78 Pulse Oximetry Oxygen Delivery Me thod Room Air Room Air Room Air 02/25/25 20:43 02/25/25 23:58 Temperature 98.3 F 98.1 F Pulse Rate [Blood Pressure Cuff] 80 60 Respiratory Rate 16 16 Blood Pressure [Le ft Arm] 128/81 125/81 Pulse Oximetry 99 99 Oxygen Delivery Me thod Room Air Room Air Documenting provider has reviewed patient's vital signs: yes OB - DS: Summary Hospital Course Hospital Course: Brisa is a 25 y.o. who was admitted to [facility] & [facility] for SROM. ?She had an uncomplicated NVD.?The patient feels well. ?The pain is well controlled with current medications. ?She has no new complaints. ?She is breast feeding and reports things are going well.? the patient has done well.? Vitals have been stable.? She has remained afebrile.? Has a good appetite, is tolerating a general diet. ?She is voiding without difficulty.? She is passing gas and has not had a bowel movement.? She is ambulating and denies any dizziness.? Has Small amount of rubra lochia. ?She is planning a Mirena for prevention. Peripartum Data Infant delivery method: Vaginal Laceration description: None complications: none [place] Infant Gender: Male Infant Discharge Plan: Home Status at Discharge Functional status at discharge: independent ambulation Overall status at discharge: patient is progressing back to baseline Time Spent with Patient Time attestation: Total time spent providing and/or coordinating discharge services: Time spent: Less than 30 minutes Discharge Plan Discharge Disposition: Home, Self-Care Date of Admission: 02/24/25 21:00 Attending Provider on Discharge: Leodan Vaughan Primary Care Provider: Provider,Not a Local Condition: Stable Anticipated Discharge Date/Time: 02/26/25 12:00 Discharge Medications: New docusate sodium 100 mg Capsule 100 mg PO DAILY Qty: 60 0RF acetaminophen 500 mg Tablet 1,000 mg PO Q6H PRNQty: 0 0RF ibuprofen 600 mg Tablet 600 mg PO Q6H PRNQty: 60 0RF Continued One-A-Day -1 27 mg iron- 800 mcg-235 mg capsule 1 cap PO DAILY docusate sodium 100 mg capsule 100 mg PO QDAY PRN Discharge Orders: Discharge Order (Routine); Ordered 02/26/25 Ordered By: Leodan Vaughan Patient Education: OB Over the Counter Medication Information, OB Vaginal/Breast Feeding Additional Instructions: Discharge instructions were reviewed with the patient including signs and symptoms of infection and home going medications Nothing vaginally for 6 weeks: no tampons or intercourse Off Work or School for 6 weeks 2-week visit: discuss infant feeding concerns, review control options and screen for anxiety/depression. 6-week visit for an annual exam. consultation services are available to all mothers and babies for the first year after delivery.? To make an appointment, please call [phone]. Activity Level: Activity as Tolerated Discharge Diet: Regular Follow Up Appointments: [facility] [Provider Group] Forms: [facility], [facility] Instructions
[2025-02-26 07:56] VITALS: BP 123/87; PULSE 78; RESP 18; TEMP 36.6; O2SAT 97
[2025-02-26] MEDS: DOCUSATE SODIUM 100 MG CAPSULE PO (10:50)
[2025-02-26] MEDS: IBUPROFEN 600 MG TABLET PO (10:50)
--- NOTE | 2025-02-26 14:45 | PM.ANPOST ---
Post Anesthesia Note Post Anesthesia Note Patient seen: Inpatient Respiratory Status: adequate Cardiovascular Status: adequate Mental Status: baseline Pain: adequate Temp: baseline Anesthetic awareness: N/A Complications: none Follow care: none
== END 2025-02-26 12:11 | disposition home or self-care (01) | DRG 560 ==
LOC: OB OUT 21:00 → OB 21:00
PROVIDERS: Absent Provider Advanced Practice Midwife; Admitting Provider Advanced Practice Midwife; Visit Provider Advanced Practice Midwife
DX: O42.02 Full-term premature rupture of membranes, onset of labor within 24 hours of rupture (principal); Z37.0 Single live birth; L91.8 Other hypertrophic disorders of the skin; O99.344 Other mental disorders complicating childbirth; F41.9 Anxiety disorder, unspecified; F32.A Depression, unspecified; Z3A.39 39 weeks gestation of pregnancy
CPT/HCPCS: 01967; 36415; 84112; 85025; 86592; A9270; J0665; J2795; J7120